=== PATIENT | male | born 2000 ===

== ENCOUNTER 2023-07-16 20:40 | Emergency (ER) | payer BC, MEDICAID, OTHER ==
[2023-07-16] MEDS: Penicillin V Potassium 500 MG Tab PO STA (21:45)
== END 2023-07-16 21:45 | disposition home or self-care (01) ==
LOC: MW.ED 20:40
DX: J02.9 Acute pharyngitis, unspecified (principal)
CPT/HCPCS: 99282; A9270; 99283